=== PATIENT | female | born 1995 | race Caucasian/White ===

== ENCOUNTER 2021-07-24 12:47 | Emergency (ER) | payer BC, SELFPAY ==
[2021-07-24] MEDS ORDERED: Sulfameth/Trimethoprim DS 800-160mg TAB ONE (13:17)
== END 2021-07-24 13:20 | disposition home or self-care (01) ==
LOC: BURERS 12:47
DX: L03.116 Cellulitis of left lower limb (principal); I10 Essential (primary) hypertension; E03.9 Hypothyroidism, unspecified; E66.01 Morbid (severe) obesity due to excess calories
CPT/HCPCS: 99283

== ENCOUNTER 2022-07-24 13:56 | Emergency (ER) | payer BC | END 2022-07-24 14:50 | disposition home or self-care (01) | LOC: BURERS 13:56 | DX: J10.1 Influenza due to other identified influenza virus with other respiratory manifestations (principal); I10 Essential (primary) hypertension; E03.9 Hypothyroidism, unspecified; E66.9 Obesity, unspecified | CPT/HCPCS: 87804; 99283 ==